=== PATIENT | female | born 1955 | race Caucasian/White ===

== ENCOUNTER 2016-09-17 16:02 | Emergency (ER) | payer OTHER ==
[~2016-09-17] VITALS: Ht 170.2 cm; Wt 72.6 kg
[~2016-09-17 16:02] MED LIST: MECLIZINE HCL25 MG PO; ROBITUSSIN W/CO10 ML PO; TRAMADOL50 MG PO; TRANSDERM-SCOP1 EACH TOP; ZITHROMAX Z-PA250 M1 PO
[2016-09-17 16:13] VITALS: BP 188/97
--- NOTE | 2016-09-17 17:00 | ED UPPER/LOWER EXTREMITY COMPL ---
History of Present Illness General Chief Complaint: Lower Extremity Problems Stated Complaint: PT HAVING PAIN IN THE RT LEG PROBLEM WALKING Source: patient Exam Limitations: no limitations Vital Signs & Intake/Output Vital Signs & Intake/Output Vital Signs Date Time Temp Pulse Resp B/P B/P Pulse O2 O2 Flow FiO2 Mean Ox Delivery Rate 09/17 1613 97.2 85 15 188/97 97 Room Air Room Air Allergies Coded Allergies: psyllium (ANAPHYLAXIS 09/17/16) Reconcile Medications Aspirin (Ecotrin*) 81 MG TABLET.DR 1 TAB PO DAILY HEART/BLOOD (Reported) Brimonidine Tartrate (Alphagan P) 0.1 % DROPS 1 GTT OPH BID BOTH EYES ( Reported) Cyanocobalamin (Vitamin B-12) 1,000 MCG TABLET 1 TAB PO DAILY SUPPLEMENT ( Reported) Cyclobenzaprine HCl 10 MG TABLET 1 TAB PO TIDPRN PRN SPASM DO NOT DRIVE WITH THIS MEDICATION Cyclosporine (Restasis) 0.05 % DROPERETTE 1 GTT OPH BID BOTH EYES (Reported) Dextran 70/Hypromellose/Pf (Tears Naturale Free Drops) 0.1 %-0.3 % DROPERETTE 1 DROP OPH AD PRN BOTH EYES (Reported) Dextroamphetamine/Amphetamine (Dextroamp-Amphetamin 10 MG Tab) 10 MG TABLET 1 TAB PO DAILY ADD (Reported) Ezetimibe (Zetia) 10 MG TABLET 1 TAB PO DAILY CHOLESTEROL (Reported) Hydrocodone/Ibuprofen (Hydrocodone-Ibuprofen 7.5-200) 7.5 MG-200 MG TABLET 1 TAB PO QPM PRN PAIN/INFLAMMATION (Reported) Ibuprofen 600 MG TABLET 1 TAB PO Q6 PRN PAIN with food Levothyroxine Sodium 125 MCG TABLET 1 TAB PO DAILY THYROID (Reported) Meclizine HCl 25 MG TABLET 1 TAB PO TIDPRN PRN dizziness [place]-3/Dha/Epa/Fish Oil (Fish Oil 1,000 MG Softgel) 300 MG-1,000 MG CAPSULE 1 CAP PO BID SUPPLEMENT (Reported) Omeprazole 20 MG TABLET.DR 1 TAB PO BID GI (Reported) Oxycodone HCl/Acetaminophen (Percocet 5-325 MG Tablet) 5 MG-325 MG TABLET 1 TAB PO BID BREAKTHROUGH PAIN Rosuvastatin Calcium (Crestor) 20 MG TABLET 1 TAB PO DAILY CHOLESTEROL ( Reported) Scopolamine Hydrobromide (Transderm-Scop) 1.5MG/3DAY PATCH.TD.3 1 PAT TOP Q3D dizziness apply to the hairless area behind 1 ear at least 4 hours before effect is required; reapply every 3 days as needed Valsartan/Hydrochlorothiazide (Valsartan-Hctz 160-25 MG Tab) 160 MG-25 MG TABLET 1 TAB PO DAILY BP (Reported) Triage Note: PT TO ED FOR C/C OF R SIDED LEG PAIN FROM R HIP TO GROIN AND DOWN THE LEG. PT HAS HX OF HIP DYSLPLASIA AND HAD AN INJECTION AT THE BEGINNGING OF THE MONTH BUT NOW THE PAIN IS COMING BACK. DENIES TRAUMA TO AREA. AMBULATORY IN TRIAGE. MEDIACTED WITH MOTRIN IN TRIAGE. Triage Nurses Notes Reviewed? yes Onset: Gradual Duration: week(s): (few) Timing: recent history Severity: moderate, severe Pain/Injury Location: Right: Hip, Leg. Modifying Factors: Improves With: pain medication, rest. Worsens With: movement. HPI: 61 year old female presents to the ER for chief complaint of rightsided leg pain fromthe hip to the groin and down the leg. History of hip dysplasia. SHe received an injection at the beginning of themonths but now states the pain iscoming back. No trauma to the area. Past History Travel History Traveled to [place] past 21 day No Medical History Any Pertinent Medical History? 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 No Review of Systems Review of Systems Constitutional: Denies: chills, fever. EENTM: Reports: no symptoms. Respiratory: Denies: cough, short of breath, sputum production. Cardiovascular: Denies: chest pain, palpitations. Gastrointestinal/Abdominal: Reports: no symptoms. Genitourinary: Reports: no symptoms. Musculoskeletal: Reports: joint swelling, muscle pain. Denies: back pain. Skin: Reports: no symptoms. Neurological/Psychological: Reports: no symptoms. Hematologic/Endocrine: Denies: bruising, bleeding, polyuria, polydipsia. Immunological: Reports: no symptoms. All Other Systems: Reviewed and Negative Physical Exam Physical Exam General Appearance: well developed/nourished, alert, awake, mild distress Head: atraumatic Eyes: Bilateral: PERRL, EOMI. Ears, Nose, Throat: normal pharynx, normal ENT inspection, hearing grossly normal Neck: normal inspection, supple Cardiovascular/Respiratory: regular rate/rhythm Back: normal inspection Leg Left: normal range of motion, normal inspection Leg Right: normal range of motion, normal inspection Hip Left: normal range of motion, normal inspection Hip Right: normal inspection, pain, limited range of motion Knee Left: normal range of motion, normal inspection Knee Right: normal range of motion, normal inspection Foot Left: normal inspection, normal range of motion Foot Right: normal inspection, normal range of motion Neurologic/Tendon: normal sensation, normal motor functions, normal tendon functions Skin: intact, normal color, warm/dry Lymphatic: no anterior cervical ron Progress Differential Diagnosis: arthritis, joint dysplasia, avn, acute onchronic pain Plan of Care: Current Medications Sig/Alon Start time Last Medication Dose Stop Time Status Admin Diazepam 2 MG ONCE ONE 09/170 UNVr (Valium) 09/17 1830 Oxycodone/ 1 TAB ONCE ONE 09/17 183 UNVr Acetaminophen 09/17 1830 (Percocet) Diagnostic Imaging: Viewed by Me: Radiology Read. Discussed w/RAD: Radiology Read. Radiology Impression: PATIENT: VAL MG PRESENT AGE: 61 PATIENT ACCOUNT NO: [id number] : 56 LOCATION: [facility] ORDERING PHYSICIAN: ANA LUISA ROJO MD SERVICE DATE: 09/17/16 EXAM TYPE: RAD - XRY-HIP 2-3 VIEWS, RIGHT EXAMINATION: XR HIP, RIGHT CLINICAL INFORMATION: Severe right hip pain. History of right hip dysplasia. Status post injection 2 weeks ago. COMPARISON: Plain films of the right hip 09/22/2006. TECHNIQUE: AP and frog-leg lateral views of the right hip. FINDINGS: AP and frog-leg lateral views of the right hip demonstrate patchy sclerosis of the right femoral head without significant flattening of the right femoral head. There are severe degenerative changes of the right hip joint, characterized by joint space narrowing, subchondral sclerosis and juxta marginal osteophyte formation. No acute fracture or dislocation of the right hip is identified. There are mild degenerative changes involving the right sacroiliac joint. IMPRESSION: Severe degenerative changes involving the right hip joint. Patchy sclerosis within the right femoral head may reflect subchondral sclerosis in the setting of advanced osteoarthrosis of the right hip although avascular necrosis cannot be excluded. There is no appreciable flattening of the right femoral head. DICTATED BY: BALTAZAR JONES MD DATE/TIME DICTATED:09/17/161804 INSTALLMENT ACCOUNT CHECKER:SHANEL DATE/TIME TRANSCRIBED:09/17/161804 CONFIDENTIAL, DO NOT COPY WITHOUT APPROPRIATE AUTHORIZATION. <Electronically signed in Other Vendor System> SIGNED BY: BALTAZAR JONES MD 09/17/161810 Departure Departure Disposition: HOME OR SELF CARE Condition: Stable Clinical Impression Primary Impression: Congenital dysplasia of right hip Referrals: BK SMITH MD (PCP/Family) Additional Instructions: Take the ibuprofen, Flexeril, Percocet as directed. Please follow-up with your medical program specialist. Return as needed. Departure Forms: Customer Survey General Discharge Information Prescriptions: Current Visit Scripts Ibuprofen 1 TAB PO Q6 PRN PAIN #30 TAB with food Cyclobenzaprine HCl 1 TAB PO TIDPRN PRN SPASM #[address] WITH THIS MEDICATION Oxycodone HCl/Acetaminophen (Percocet 5-325 MG Tablet) 1 TAB PO BID #10 TAB
[2016-09-17] MEDS ORDERED: ZETIA10 M1 PO (17:07)
[2016-09-17] MEDS ORDERED: VITAMIN B-121000 MC3 PO (17:08)
[2016-09-17] MEDS ORDERED: VALSARTAN-HCTZ1 EAC2 PO (17:08)
[2016-09-17] MEDS ORDERED: LEVOTHYROXINE125 MCG PO (17:08)
[2016-09-17] MEDS ORDERED: OMEPRAZOLE20 M3 PO (17:08)
[2016-09-17] MEDS ORDERED: HYDROCODONE-IB1 EAC2 PO (17:09)
[2016-09-17] MEDS ORDERED: CRESTOR20 M2 PO (17:09)
[2016-09-17] MEDS ORDERED: ALPHAGAN P5 M1 OPH (17:09)
[2016-09-17] MEDS ORDERED: FISH OIL 1,0001 EAC2 PO (17:09)
[2016-09-17] MEDS ORDERED: DEXTROAMP-AMPHE10 MG PO (17:10)
[2016-09-17] MEDS ORDERED: TEARS NATURALE1 EACH OPH (17:10)
[2016-09-17] MEDS ORDERED: RESTASIS1 EACH OPH (17:10)
[2016-09-17] MEDS ORDERED: ASPIRIN EC81 M1 PO (17:11)
--- NOTE | 2016-09-17 18:11 | RADIOLOGY REPORT ---
EXAMINATION: XR HIP, RIGHT CLINICAL INFORMATION: Severe right hip pain. History of right hip dysplasia. Status post injection 2 weeks ago. COMPARISON: Plain films of the right hip 09/22/2006. TECHNIQUE: AP and frog-leg lateral views of the right hip. FINDINGS: AP and frog-leg lateral views of the right hip demonstrate patchy sclerosis of the right femoral head without significant flattening of the right femoral head. There are severe degenerative changes of the right hip joint, characterized by joint space narrowing, subchondral sclerosis and juxta marginal osteophyte formation. No acute fracture or dislocation of the right hip is identified. There are mild degenerative changes involving the right sacroiliac joint. IMPRESSION: Severe degenerative changes involving the right hip joint. Patchy sclerosis within the right femoral head may reflect subchondral sclerosis in the setting of advanced osteoarthrosis of the right hip although avascular necrosis cannot be excluded. There is no appreciable flattening of the right femoral head.
[2016-09-17] MEDS ORDERED: CYCLOBENZAPRINE10 M1 PO (18:21)
[2016-09-17] MEDS ORDERED: PERCOCET 5-3251 EACH PO (18:21)
[2016-09-17] MEDS ORDERED: IBUPROFEN600 M1 PO (18:21)
== END 2016-09-17 18:48 ==
LOC: ERH 16:02
DX: Q65.89 Other specified congenital deformities of hip (principal)
CPT/HCPCS: 73502-RT; 96372; J1885

== ENCOUNTER 2017-12-07 11:30 | Emergency (ER) | payer OTHER ==
[~2017-12-07 11:30] MED LIST changes: +ALPHAGAN P5 M1 OPH; +ASPIRIN EC325 M2 PO; +ASPIRIN EC81 M1 PO; +ASPIRIN325 M2 PO; +ASPIRIN81 M4 PO; +AUGMENTIN 875-1 EACH PO; +COLACE100 M1 PO; +CRESTOR20 M2 PO; +CYCLOBENZAPRINE10 M1 PO; +DEXTROAMP-AMPHE10 MG PO; +DILAUDID2 M1 PO; +FISH OIL 1,0001 EAC2 PO; +HYDROCODONE-IB1 EAC2 PO; +IBUPROFEN600 M1 PO; +IBUPROFEN800 M1 PO; +LEVOTHYROXINE125 MCG PO; +MIRALAX17 G1 PO; +MS CONTIN15 M2 PO; +MS CONTIN15 M3 PO; +OMEPRAZOLE20 M3 PO; +PERCOCET 5-3251 EACH PO; +RESTASIS1 EACH OPH; +TEARS NATURALE1 EACH OPH; +VALSARTAN-HCTZ1 EAC2 PO; +VITAMIN B-121000 MC3 PO; +ZETIA10 M1 PO
[2017-12-07 11:33] VITALS: BP 143/87
--- NOTE | 2017-12-07 11:40 | ED ANIMAL BITE/WOUND CHECK ---
History of Present Illness General Chief Complaint: Suture Removal/Wound Recheck Stated Complaint: WOUND CHECK Source: patient, old records Exam Limitations: no limitations Vital Signs & Intake/Output Vital Signs & Intake/Output Vital Signs Date Time Temp Pulse Resp B/P B/P Pulse O2 O2 Flow FiO2 Mean Ox Delivery Rate 12/07 1133 98.3 79 18 143/87 98 Room Air Allergies Coded Allergies: psyllium (ANAPHYLAXIS 09/17/16) Reconcile Medications Amoxicillin/Potassium Clav (Augmentin 875-125 Tablet) 875 MG-125 MG TABLET 1 TAB PO BID DOG BITE Aspirin (Aspirin*) 325 MG TABLET 325 MG PO BID blood clot risk reduction . Aspirin (Aspirin*) 325 MG TABLET 325 MG PO BID blood clot risk reduction Cyanocobalamin (Vitamin B-12) 1,000 MCG TABLET 1 TAB PO DAILY SUPPLEMENT ( Reported) Docusate Sodium (Colace) 100 MG CAPSULE 1 CAP PO BID CONSITPATION DISCONTINUE USE IF YOU DEVELOP LOOSE STOOL OR DIARRHEA Ezetimibe (Zetia) 10 MG TABLET 1 TAB PO DAILY CHOLESTEROL (Reported) Hydromorphone HCl (Dilaudid) 2 MG TABLET 1-2 TAB PO Q4-6 PRN PRN PAIN Hydromorphone HCl (Dilaudid) 2 MG TABLET 1-2 TAB PO Q4-6 PRN PAIN Ibuprofen 800 MG TABLET 1 TAB PO TID PRN PAIN Levothyroxine Sodium 125 MCG TABLET 1 TAB PO DAILY THYROID (Reported) Morphine Sulfate (Ms Contin) 15 MG TABLET.ER 15 MG PO BID PRN PAIN Omeprazole 20 MG TABLET.DR 1 TAB PO BID GI (Reported) Polyethylene Glycol 3350 (Miralax) 17 GRAM POWD.PACK 1 PAC PO DAILY CONSTIPATION dissolve in water, DISCONTINUE USE IF YOU DEVELOP LOOSE STOOL OR DIARRHEA Valsartan/Hydrochlorothiazide (Valsartan-Hctz 160-25 MG Tab) 160 MG-25 MG TABLET 1 TAB PO DAILY BP (Reported) Triage Note: 62 YO FEMALE TO TRIAGE FOR RECHECK OF DOG BITE TO R HAND, SEEN HERE THURSDAY. PER PT, SITE LOOKS BETTER Triage Nurses Notes Reviewed? yes HPI: Patient presents for a wound check. Patient was seen the other day after dog bite to her right hand. Patient is on antibiotics. Patient states the pain and swelling and redness are much improved. There are no fevers or chills. She currently has no pain. Patient has no other complaints. Past History Travel History Traveled to [place] past 21 day No Medical History Any Pertinent Medical History? 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 No Review of Systems Review of Systems Constitutional: Reports: no symptoms. Respiratory: Reports: no symptoms. Cardiovascular: Reports: no symptoms. Musculoskeletal: Reports: see HPI. Skin: Reports: see HPI. Neurological/Psychological: Reports: no symptoms. Immunologic/Allergic: Reports: no symptoms. Physical Exam Physical Exam General Appearance: well developed/nourished, alert, awake Head: atraumatic, normal appearance Neck: normal inspection, supple Extremities: MINIMAL ERYTHEMA AROUND THE PUNCTURE WOUNDS. nO SWELLING. nO TENDERNESS. nO AXILLARY ADENOPATHY. mUCH IMPROVED FROM PRIOR VISIT. Neurologic/Psych: no motor/sensory deficits, awake, alert, oriented x 3, normal gait, normal mood/affect Lymphatic: no anterior cervical ron Progress Differential Diagnosis: WOUND CHECK Plan of Care: Continue current management Departure Departure Disposition: HOME OR SELF CARE Condition: Stable Clinical Impression Primary Impression: Visit for wound check Referrals: Tamiko Alberts MD (PCP/Family) Additional Instructions: Return to the emergency department for any concerns. Departure Forms: Customer Survey General Discharge Information
== END 2017-12-07 11:57 ==
LOC: ERH 11:30
DX: Z48.01 Encounter for change or removal of surgical wound dressing (principal)